=== PATIENT | male | born 1995 | race Two or more races ===

== ENCOUNTER 2018-05-14 19:47 | Emergency (ER) | payer OTHER ==
--- NOTE | 2018-05-14 19:51 | ER Report ---
History and Physical Reviewed Nurses Notes: Yes Old Medical Records Reviewed: Yes Depart Departure Condition: Stable Disposition: HOME OR SELF-CARE ELIDIA RHOADES DO May 14, 2018 19:51
--- NOTE | 2018-05-14 20:00 | ER Report ---
History and Physical Time Seen By MD: 20:02 HPI/ROS CHIEF COMPLAINT: Left shoulder pain HISTORY OF PRESENT ILLNESS: This is a 22-year-old male who presents to emergency department for left shoulder pain. Patient states that yesterday he was lifting weights and felt some pain in his left shoulder along the A/C joint into the tr apezius muscle. Patient went back and worked out today, different exercises and exacerbated the discomfort, decided to come in for further evaluation. No numbness or tingling. Mild decrease in range of motion. No nausea or vomiting, no chest pain or shortness of breath. REVIEW OF SYSTEMS: Respiratory: No cough, no dyspnea. Cardiovascular: No chest pain, no palpitations. Gastrointestinal: No vomiting, no abdominal pain. Musculoskeletal: As above. Allergies: Coded Allergies: No Known Drug Allergies (Unverified , 05/14/18) Home Meds No Active Prescriptions or Reported Meds Past Medical/Surgical History The patient has no significant past medical or surgical history. Reviewed Nurses Notes: Yes Constitutional Vital Sign - Last 24 Hours 05/14/18 20:01 Temp 97.6 Pulse 98 Resp 16 B/P (MAP) 92/82 Pulse Ox 91 O2 Delivery Room Air Physical Exam General Appearance: The patient is alert, has no immediate need for airway protection and no current signs of toxicity. Eyes: Pupils equal and round no injection. Respiratory: Chest is non tender, lungs are clear to auscultation. Cardiac: regular rate and rhythm. Gastrointestinal: Abdomen is soft and non tender, no masses, bowel sounds normal. Musculoskeletal: Neck: Neck is supple and non tender. Extremities have full range of motion and are non tender. Abduction and abduction with mild discomfort, negative scarf, negative back scratch sign, no rash deformities or crepitus. Skin: No rashes or lesions. DIFFERENTIAL DIAGNOSIS: After history and physical exam differential diagnosis was considered for A/C separation, contusion, subluxation and muscle strain. Medical Decision Making EKG/Imaging Imaging EXAMINATION: Left shoulder 4 views. HISTORY: Shoulder pain. COMPARISON: None FINDINGS: No evidence of acute fracture or dislocation about the left shoulder. Normal alignment at the glenohumeral and acromioclavicular joints. The subacromial space is preserved. Visualized upper left ribs appear intact. IMPRESSION: Negative left shoulder. Report Dictated By: Mina Harvey MD at 05/14/2018 8:52 PM Report E-Signed By: Mina Harvey MD at 05/14/2018 8:53 PM WSN:[id number] ED Course/Re-evaluation ED Course The patient was admitted to room. Extremities were obtained. Differential diagnoses were considered. An x-ray of the left shoulder was obtained, no concerning findings noted. I reviewed the imaging results with the patient, we discussed resting the arm for the next several days, he can take ibuprofen or Tylenol as needed for discomfort. Patient was also placed in a sling at his request. He had no other questions or concerns at this time and was discharged home. Decision to Disposition Date: May 14, 2018 Decision to Disposition Time: 21:14 Depart Departure Latest Vital Signs Vital Signs Date Time Temp Pulse Resp B/P (MAP) Pulse Ox O2 Delivery O2 Flow Rate FiO2 05/14/18 20:01 97.6 98 16 92/82 91 Room Air Impression: Primary Impression: Muscle strain Condition: Improved Disposition: HOME OR SELF-CARE New Scripts No Active Prescriptions or Reported Meds Patient Instructions: Muscle Strain (ED) Additional Instructions: There were no concerning findings on the x-ray today. I believe you have a muscle strain. I recommend resting the muscle for the next 2-4 days, take ibuprofen or Tylenol as needed for discomfort. You can also try gentle range of motion exercises. Return to the emergency department for any other concerns or worsening symptoms. MARITZA BOWLES ASSEMBLER CONVERTIBLE TOP-BC May 14, 2018 20:00
[2018-05-14 20:01] VITALS: BP 92/82
--- NOTE | 2018-05-14 20:58 | RADIOLOGY IMAGING REPORT ---
FACILITY: [facility] - [place] PATIENT NAME: Lexi Colon : 1995 MR: [id number] V: [id number] EXAM DATE: ORDERING PHYSICIAN: MARITZA BOWLES TECHNOLOGIST: Location: [facility] Patient: Lexi Colon : 1995 Visit/Account:[id number] Date of Sevice: 05/14/2018 EXAMINATION: Left shoulder 4 views. HISTORY: Shoulder pain. COMPARISON: None FINDINGS: No evidence of acute fracture or dislocation about the left shoulder. Normal alignment at the glenohu meral and acromioclavicular joints. The subacromial space is preserved. Visualized upper left ribs ap pear intact. IMPRESSION: Negative left shoulder. Report Dictated By: Mina Harvey MD at 05/14/2018 8:52 PM Report E-Signed By: Mina Harvey MD at 05/14/2018 8:53 PM WSN:[id number]
== END 2018-05-14 21:41 | disposition home or self-care (01) ==
LOC: ER 20:26
DX: S46.912A Strain of unspecified muscle, fascia and tendon at shoulder and upper arm level, left arm, initial encounter (principal)
CPT/HCPCS: 73030; 99283; A4565

== ENCOUNTER 2018-08-13 17:04 | Emergency (ER) | payer OTHER ==
[2018-08-13 17:17] VITALS: BP 129/83
--- NOTE | 2018-08-13 18:27 | ER Report ---
History and Physical Time Seen By MD: 18:27 Hx. of Stated Complaint: LEFT THUMB LACERATION HPI/ROS CHIEF COMPLAINT: Laceration HISTORY OF PRESENT ILLNESS: This is a [age] male presents to the emergency department for laceration to his left thumb. Patient states he was skiing today, put his hand down on the ground when he fell and sustained a laceration to the back of his left thumb. He was seen and evaluated by the pigskin trimmer, they placed him in a splint applied Steri-Strips and some difficulty sent him to the ER for further evaluation. Patient arrives alert and oriented, bleeding controlled. Tetanus is up-to-date. REVIEW OF SYSTEMS: Respiratory: No cough, no dyspnea. Cardiovascular: No chest pain, no palpitations. Gastrointestinal: No vomiting, no abdominal pain. Musculoskeletal: No back pain. Integumentary: As above. Allergies: Coded Allergies: No Known Drug Allergies (Unverified , 08/13/18) Home Meds No Active Prescriptions or Reported Meds Past Medical/Surgical History The patient has no significant past medical or surgical history. Reviewed Nurses Notes: Yes Hx Substance Use Disorder: No Hx Alcohol Use: No Constitutional Vital Sign - Last 24 Hours 08/13/18 17:17 Temp 98.4 Pulse 86 Resp 20 B/P (MAP) 129/83 Pulse Ox 96 O2 Delivery Room Air Physical Exam General Appearance: The patient is alert, has no immediate need for airway protection and no current signs of toxicity. Eyes: Pupils equal and round no injection. Respiratory: Chest is non tender, lungs are clear to auscultation. Cardiac: regular rate and rhythm. Gastrointestinal: Abdomen is soft and non tender, no masses, bowel sounds norm al. Musculoskeletal: Neck: Neck is supple and non tender. Extremities have full range of motion and are non tender. Skin: 2cm angulated laceration to the dorsum of the left thumb, good flexion and extension of the thumb, no apparent tendon damage. Bleeding controlled. DIFFERENTIAL DIAGNOSIS: After history and physical exam differential diagnosis was considered for laceration, tendon laceration, fracture. Medical Decision Making ED Course/Re-evaluation ED Course The patient was admitted to a room. A history of physical were obtained. Differential diagnoses were considered. The patient's laceration that was sustained while cross-country skiing, was anesthetized, irrigated and repaired as noted below, patient tolerated well. He was placed in a tube gauze dressing with bacitracin, instructed to follow-up with [facility] to have the sutures removed, no indication for antibiotics at this time, patient is aware. Patient had no other questions or concerns at this time and was discharged home. Procedure: Laceration repair. Verbal consent was obtained from the patient. The 2 cm laceration on the dorsum of the left thumb was anesthetized in the usual fashion. The wound was scrubbed, draped and explored to its base with a gloved finger. There were no deep structures involved. No tendon injury was identified. The wound was repaired with 5, 5-0 Prolene, simple interrupted sutures. The wound repair was simple. The procedure was performed by myself. Decision to Disposition Date: Aug 13, 2018 Decision to Disposition Time: 19:28 Depart Departure Latest Vital Signs Vital Signs Date Time Temp Pulse Resp B/P (MAP) Pulse Ox O2 Delivery O2 Flow Rate FiO2 08/13/18 17:17 98.4 86 20 129/83 96 Room Air Impression: Primary Impression: Laceration of left thumb Condition: Improved Disposition: HOME OR SELF-CARE Referrals: [facility] New Scripts No Active Prescriptions or Reported Meds Patient Instructions: Acute Wound Care (ED), Finger Laceration (ED) Additional Instructions: Keep wound dry for 48 hours. Follow up with your primary care provider in the next 7-10 days to have sutures removed. Monitor for signs of infection; redness, swelling, heat, discharge, increasing pain or red streaking. Take Tylenol or Ibuprofen as needed for pain. Return to the ER with any concerns. You may change dressing as needed. Problem Qualifiers Primary Impression: Laceration of left thumb Encounter type: initial encounter Damage to nail status: without damage Foreign body presence: without foreign body Qualified Codes: S61.012A - Laceration without foreign body of left thumb without damage to nail, initial encounter MARITZA BOWLES FENCE RIDER-BC Aug 13, 2018 18:27
== END 2018-08-13 19:33 | disposition home or self-care (01) ==
LOC: ER 17:25
DX: S61.012A Laceration without foreign body of left thumb without damage to nail, initial encounter (principal)
CPT/HCPCS: 99282